=== PATIENT | male | born 1950 | race Caucasian/White ===

== ENCOUNTER → 2024-04-27 | Outpatient (CLI) | payer OTHER | END | disposition home or self-care (01) | LOC: RAH 10:10 | PROVIDERS: ATTEND Internal Medicine | DX: Z13.6 Encounter for screening for cardiovascular disorders (principal); I50.22 Chronic systolic (congestive) heart failure | CPT/HCPCS: 75571 ==

== ENCOUNTER 2024-06-11 08:12 | Day surgery (SDC) | payer MEDICARE ==
[2024-06-11] VITALS (13 sets, daily range): BP systolic 99–146; BP diastolic 53–78; PULSE 66–78; RESP 15–18; TEMP 96.6–97.6
[~2024-06-11] VITALS: Ht 180.3 cm; Wt 78.9 kg
[2024-06-11] MEDS ORDERED: SPIR50TA PO (10:33)
[2024-06-11] MEDS ORDERED: RIVA20TA PO (10:33)
[2024-06-11] MEDS ORDERED: TORS5TAB12 PO (10:33)
[2024-06-11] MEDS ORDERED: EMPA25TA PO (10:33)
[2024-06-11] MEDS ORDERED: METF-444 PO (10:33)
[2024-06-11] MEDS ORDERED: DULA3PEN SQ (10:34)
[2024-06-11] MEDS: 0.9%NACL 1000ML 1,000 ML IV ONE (10:36)
[2024-06-11] MEDS ORDERED: proPOFol 10 MG/ML 20ML VIAL IV ONE (12:38)
[2024-06-11] MEDS: DEXTROSE 50%-WATER 50 ML DISP.SYRIN IV ONE (13:38)
== END 2024-06-11 14:30 | disposition home or self-care (01) ==
LOC: DAH 08:12 → ENDO 08:12
PROVIDERS: ATTEND Surgery
DX: K59.00 Constipation, unspecified (principal); D12.3 Benign neoplasm of transverse colon; K57.30 Diverticulosis of large intestine without perforation or abscess without bleeding; I10 Essential (primary) hypertension; E11.9 Type 2 diabetes mellitus without complications; E78.00 Pure hypercholesterolemia, unspecified; K21.9 Gastro-esophageal reflux disease without esophagitis; Z98.84 Bariatric surgery status; Z95.0 Presence of cardiac pacemaker; Z79.84 Long term (current) use of oral hypoglycemic drugs; Z79.899 Other long term (current) drug therapy
CPT/HCPCS: 45378; 82948 ×3; J7030 ×2; J7070; J2704; A4620; A4215; J3490

== ENCOUNTER → 2024-07-16 | Outpatient (CLI) | payer MEDICARE ==
[~2024-07-16] MED LIST: DULA3PEN SQ; EMPA25TA PO; METF-444 PO; RIVA20TA PO; SPIR50TA PO; TORS5TAB12 PO
[2024-07-16 16:51] LABS: ALBUMIN 3.6 g/dL (3.5-5.0); BILIRUBIN,TOTAL 0.6 mg/dL (0.2-1.0); CREATININE 1.4 mg/dL (0.5-1.3); POTASSIUM 4.1 mmol/L (3.5-5.1); TOTAL PROTEIN, SERUM 6.9 g/dL (6.0-8.3)
== END | disposition home or self-care (01) ==
LOC: LAB 15:11
PROVIDERS: ATTEND Student in an Organized Health Care Education/Training Program
DX: I25.10 Atherosclerotic heart disease of native coronary artery without angina pectoris (principal)
CPT/HCPCS: 36415; 80053

== ENCOUNTER → 2024-07-22 | Outpatient (CLI) | payer MEDICARE ==
[~2024-07-22] MED LIST changes: +IOHEXOL 350 MG/ML 100ML INFUS..BTL IV ONE; +metoPROLOL tartRATE 1 MG/ML 5ML VIAL IV ONE
== END | disposition home or self-care (01) ==
LOC: RAH 09:49
PROVIDERS: ATTEND Student in an Organized Health Care Education/Training Program
DX: I25.10 Atherosclerotic heart disease of native coronary artery without angina pectoris (principal); J90 Pleural effusion, not elsewhere classified; I31.39 Other pericardial effusion (noninflammatory); M47.815 Spondylosis without myelopathy or radiculopathy, thoracolumbar region
CPT/HCPCS: 75574; J3490; Q9967

== ENCOUNTER → 2024-07-30 | Outpatient (CLI) | payer MEDICARE ==
[~2024-07-30] MED LIST changes: -IOHEXOL 350 MG/ML 100ML INFUS..BTL IV ONE; -metoPROLOL tartRATE 1 MG/ML 5ML VIAL IV ONE
--- NOTE | 2024-08-03 15:59 | HMCSR ---
APPROVED REPORT EXAM: Two-dimensional and M-mode echocardiogram with Doppler and color Doppler. INDICATION ICD: I50.20 Chronic systolic heart failure Surgery/Intervention Pacemaker: RISK FACTORS Hypertension Hyperlipidemia Diabetes 2D Dimensions RVDd4.0 cmLVEF(%)24.6 (>50%)LVED Vol(simp.)136.0 mL IVSd0.7 (0.7-1.1cm)FS(%)11 %LVES Vol(simp.)93.0 mL LVDd5.2 (3.8-5.6cm)Ao Root(2D)3.3 (2.0-3.7cm)LVEF(%, simp.)31 % PWd0.9 (0.7-1.1cm)LVOT diam2.1 (1.8-2.4cm)LA ESV INDEX (BP)59.64 mL/m2 LVDs4.6 (2.5-4.0cm)IVC diam2.4 cm Aortic Valve AoV Vmax1.3 m/Mayank Peak GR7.2 mmHgLVOT Vmax0.7 m/s AoV VTI0.3 mAo Mean GR4.0 mmHgLVOT VTI0.16 m QI (VMAX)2.1 cm2Al P1/2T564 msAVA (VTI) 2.1 cm2 Mitral Valve MV E Vmax96.1 cm/sDECEL Orhk111 ms MR Max PG77 mmHgP 1/2 T64 ms MVA (PHT)3.4 cm2 Pulmonary Valve PV Vmax0.8 m/sPV VTI0.21 mPV Mean GR2 mmHg PV Peak GR2.8 mmHg Tricuspid Valve TR Vmax2.4 m/sRAP (EST) 8 [id number] mmHg TR Peak GR24.0 mmHg Left Ventricle Left ventricular cavity size is normal. There is normal left ventricular wall thickness. LVEF is 30-3 5%. GLS rate is -11.3%. The LV diastolic function was unable to be assessed due to atrial arrhythmia. Right Ventricle The right ventricle is normal size. Right ventricular systolic function is moderately reduced. Atria The left atrium is severely dilated. The right atrium is moderately dilated. Aortic Valve Aortic valve is trileaflet. Aortic valve leaflets are sclerotic but open well. Trace to mild aortic r egurgitation. There is no aortic valvular stenosis. Mitral Valve Mitral valve leaflets are mildly sclerotic but open well. Mitral regurgitation is trace to mild. Ther e is no mitral valve stenosis. Tricuspid Valve The tricuspid valve leaflets appear normal. There is trace to mild tricuspid regurgitation. Right gary tricular systolic pressure is estimated at 30-40 mmHg. Pulmonic Valve The pulmonic valve leaflets are thin and pliable; valve motion is normal. There is trace pulmonic leo vular regurgitation. Great Vessels The aortic root is normal in size. IVC is dilated and collapses >50% with inspiration. Pericardium There is a small circumferential pericardial effusion. No echo indications of pericardial tamponade. Conclusion Left ventricular cavity size is normal. LVEF is 30-35%. GLS rate is -11.3%. The LV diastolic function was unable to be assessed due to atrial arrhythmia. The right ventricle is normal size. Right ventricular systolic function is moderately reduced. The left atrium is severely dilated. The right atrium is moderately dilated. Trace to mild aortic regurgitation. Mitral regurgitation is trace to mild. There is trace to mild tricuspid regurgitation. Right ventricular systolic pressure is estimated at 30-40 mmHg. IVC is dilated and collapses >50% with inspiration. There is a small circumferential pericardial effusion. No echo indications of pericardial tamponade.
== END | disposition home or self-care (01) ==
LOC: SHCH 13:46
PROVIDERS: ATTEND Student in an Organized Health Care Education/Training Program
DX: I08.3 Combined rheumatic disorders of mitral, aortic and tricuspid valves (principal); I11.0 Hypertensive heart disease with heart failure; I50.22 Chronic systolic (congestive) heart failure; E11.9 Type 2 diabetes mellitus without complications; E78.5 Hyperlipidemia, unspecified; I31.39 Other pericardial effusion (noninflammatory); Z95.0 Presence of cardiac pacemaker
CPT/HCPCS: 93306